=== PATIENT | male | born 1950 | race Caucasian/White ===

== ENCOUNTER 2021-06-12 11:55 | Inpatient (IN) | payer MEDICARE ==
[~2021-06-12] VITALS: Ht 170.2 cm; Wt 100.0 kg
[2021-06-12 12:35] LABS: HEMATOCRIT 39.6 % (42.0-52.0); MEAN CELL VOLUME 87 fl (80.0-100.0); MEAN CORPUSCULAR HEMOGLOBIN 29 pg (27-31); MEAN CORPUSCULAR HGB CONC 33 g/dl (33.0-37.0); PLATELET COUNT 247 K/mm3 (130-400); RED BLOOD COUNT 4.53 M/mm3 (4.20-5.60); REDCELL DISTRIBUTION WIDTH-CV 15.1 % (11.5-14.5)
[2021-06-12 12:45] LABS: ALBUMIN 3.1 gm/dL (3.4-4.8); BILIRUBIN,TOTAL 1.2 mg/dL (0.2-1.2); CALCIUM 9.7 mg/dL (8.4-10.2); CREATININE, serum 3.15 mg/dL (0.72-1.25); POTASSIUM 4.2 mmol/L (3.5-4.5); TOTAL PROTEIN 6.8 gm/dL (6.2-8.1)
[2021-06-12 12:52] LABS: TROPONIN-I 0.097 ng/mL (0.00-0.033)
[2021-06-12 13:04] LABS: BAND 18 % (0-10); LYMPHOCYTE 4 % (20.0-51.0); NEUTROPHILS 74 % (42.0-75.2); PLATELET ESTIMATE NORMAL (NORMAL)
[2021-06-12 13:05] LABS: OVALOCYTES 1+
[2021-06-12 13:54] LABS: INR 1.5 (0.8-3.0); PROTHROMBIN TIME 17.1 SECONDS (9.7-12.8)
[2021-06-12 13:56] LABS: PARTIAL THROMBOPLASTIN TIME 25.8 SECONDS (26.0-37.0)
[2021-06-12] MEDS ORDERED: ARTHROTEC 550 MG/TAB PO (15:09)
[2021-06-12] MEDS ORDERED: REQUIP4 MG PO (15:10)
[2021-06-12] MEDS ORDERED: METANX 2.8 MG-21 TA1 PO (15:11)
[2021-06-12] MEDS ORDERED: THERA-D 20002000 IU PO (15:11)
[2021-06-12] MEDS ORDERED: NEURONTIN600 MG/TAB PO (15:12)
[2021-06-12] MEDS ORDERED: GLUCOPHAGE500 MG/TAB PO (15:13)
[2021-06-12] MEDS ORDERED: LOPRESSOR 225 MG/TAB PO (15:13)
[2021-06-12] MEDS ORDERED: FLOMAX 0.40.4 MG/CAP PO (15:14)
[2021-06-12] MEDS ORDERED: PEPCID 20MG TAB20 MG PO (15:14)
[2021-06-12] MEDS ORDERED: ASPIRIN 81M81 MG/TA2 PO (15:15)
[2021-06-12] MEDS ORDERED: PRECOSE 25MG25 MG PO (15:15)
[2021-06-12] MEDS ORDERED: LIPITOR 40MG TA40 MG PO (15:16)
[2021-06-12] MEDS ORDERED: COZAAR100 MG PO (15:16)
[2021-06-12] MEDS ORDERED: JANUVIA50 MG PO (15:18)
[2021-06-12] MEDS ORDERED: LOTREL 2.5 MG-11 CAP PO (15:18)
[2021-06-12 16:10] VITALS: BP 94/63; PULSE 85; TEMP 99.7
[2021-06-12 17:14] LABS: COLLECTION METHOD CLEAN CATCH
[2021-06-12 17:26] LABS: MUCOUS Present (NOT PRESENT); PH 5 (5-8); SQUAMOUS EPITHELIAL 0-2 /hpf (0-10); URINE APPEARANCE Cloudy (CLEAR/HAZY); URINE BACTERIA Rare /hpf (NONE SEEN); URINE BILIRUBIN Negative (NEGATIVE); URINE BLOOD Negative (NEGATIVE); URINE COLOR Amber (YELLOW); URINE GLUCOSE Negative (NEGATIVE); URINE KETONE Negative (NEGATIVE); URINE LEUKOCYTE ESTERASE Negative (NEGATIVE); URINE NITRATE Negative (NEGATIVE); URINE PROTEIN(semi-quant) 2+ (NEGATIVE); URINE UROBILINOGEN >=4.0 (NEGATIVE)
--- NOTE | 2021-06-12 17:39 | NUR ---
PT UP TO SURGICAL FLOOR AND IN ROOM 346 AT ABOUT 1610, PT ABLE TO AMBULATE TO BED; PT REQUIRES SBA, PT DYSPNEIC AND REPORTS SHORTNESS OF AIR, VSS, 02 ROOM AIR WITH SAURATIONS ABOVE 92 PERCENT. AT BEDSIDE. ASSESMENT COMPLETE. PT HAS BILAT KNEE BRACES ON. HAS LIDOCAINE PATCH ON LOWER BACK. BLE +2 PITTING EDEMA, CAPILLARY REFILL WNL. MED REC COMPLETE. HEP GTT INFUSING AT 18CC/HR TO LAC NEXT HEPXA AT 1944 THIS DAY. N/S FREE INFSUING TO LFA IV. LUNGS AUSCULATED ;ALL LOBES DIMINISHED. PT AND ORIENTED TO FLOOR AND HOSPITAL POLICY. BOTH VERBALIZE UNDERSTANDING. ALL NEEDS MET THUS FAR. CALL LIGHT WITHIN REACH.
[2021-06-12 17:55] VITALS: TEMP 101
--- NOTE | 2021-06-12 18:15 | NUR ---
THIS NURSE CONTACTED BY MERA IN RADIOLOGY TO CONIFRM IF PT REQUIRES STAT VQ SCAN, THIS NURSE CONTACTED HOSPITLIST WHO INFORMED THIS NURSE MIGHT WELL GET VQ SCAN DONE ANOTHER PT ON ANOTHER FLOOR HAS AN EMERGENT ONE, THIS NURSE RELAYED TO MERA. MERA CONFIRMS AND STATES SHE WILL COME TOMORROW MORNING TO COMPLETE.
--- NOTE | 2021-06-12 18:35 | NUR ---
PT TEMPERATURE ELEVATED, TYLENOL ADMINSITERED ORDERED. TEMP WAS 101.7 UPON RECHECK 98.7.
--- NOTE | 2021-06-12 20:00 | NUR ---
HEP XA=0.46, HEPARIN GTT AT 18CC/HR TO LEFT AC INFUSING WITHOUT PROBLEM. HAS INT TO LEFT AC, FLUSHED AT THIS TIME. PT SITTING BY WINDOW. REPORTS LEFT CHEST DISCOMFORT AND COUGH R/T PNEUMONIA. PT IS ALERT AND ORIENTED X4. DENIES NEED FOR PAIN MEDS AT THIS TIME.
[2021-06-12 20:50] VITALS: BP 109/64; PULSE 83; TEMP 99.3
[2021-06-12 23:41] VITALS: BP 95/57; PULSE 75; TEMP 98.7
--- NOTE | 2021-06-13 02:00 | NUR ---
HEP XA=0.32, INCREASED RATE TO 19CC/HR. PT IN BED, NO COMPLAINTS VOICED.
[2021-06-13 03:24] VITALS: BP 96/48; PULSE 80; TEMP 98.6
--- NOTE | 2021-06-13 04:00 | NUR ---
STANDBY ASSIST TO RECLINER, IV HEPARIN CONTINUES TO LEFT AC.
[2021-06-13 06:27] LABS: MEAN CELL VOLUME 87 fl (80.0-100.0); MEAN CORPUSCULAR HEMOGLOBIN 28 pg (27-31); MEAN CORPUSCULAR HGB CONC 33 g/dl (33.0-37.0); MEAN PLATELET VOLUME 11.1 fl (7.4-10.4); PLATELET COUNT 235 K/mm3 (130-400); RED BLOOD COUNT 4.22 M/mm3 (4.20-5.60); REDCELL DISTRIBUTION WIDTH-CV 15.2 % (11.5-14.5)
[2021-06-13 06:39] LABS: HEMATOCRIT 36.6 % (42.0-52.0)
[2021-06-13 06:44] LABS: ALBUMIN 2.7 gm/dL (3.4-4.8); CALCIUM 9.8 mg/dL (8.4-10.2); CREATININE, serum 2.87 mg/dL (0.72-1.25); MAGNESIUM 1.8 mg/dL (1.6-2.6); PHOSPHOROUS 3.9 mg/dL (2.3-4.7)
[2021-06-13 08:00] VITALS: BP 117/58; PULSE 89; TEMP 97.8
[2021-06-13 08:21] LABS: BAND 15 % (0-10); EOSINOPHIL 1 % (0-4); LYMPHOCYTE 5 % (20.0-51.0); NEUTROPHILS 74 % (42.0-75.2); PLATELET ESTIMATE NORMAL (NORMAL)
--- NOTE | 2021-06-13 11:37 | NUR ---
mobile home lot utility worker met with patient and his spose Cheryl ([phone]) at bedside with patient consent. Patient informs he is traveling from [place], to visit his daughter and three young grandchildren. His spouse has additional family members nearby in [place], and there is a family home in [place], [place], that they may stay at as needed, post-hospitalization, for recovery before traveling home to [place]. Patient and his spouse live in a farm home in [place]. Patient utilizes a cane for ambulation and has no other medical equipment needs; he has no oxygen needs. His primary care physician is Dr. Jailene Manning in [place], [place]. He utilizes [facility] in [place], [place], but do have access to local pharmacies, including [facility] should he need medications at discharge. Patient has a living will and DPOA paperwork at home, but no access to it at this time, patient would like to complete a DPOA-HC now, to get on file "just in case." This social insurance adviser facilitates patient completion of DPOA-HC paperwork, a copy is placed into pt chart for filing and patient is given the original and two copies. Patient is hopeful he will not have to remain in [place] at discharge, but there is family nearby they can stay with for any additional recovery/services or supports as needed; he identifies no anticipated discharge needs at this time. Social work will continue to follow for discharge needs. *Discharge plan: D/c to family home with spouse, pending further discharge needs*
--- NOTE | 2021-06-13 11:38 | NUR ---
PT TO VQ SCAN SEE REPORT FOR RESULTS, PT THEN AMBULATING IN [facility] WITH THERAPY. ADJUSTED HEPARIN RATE PER ORDERS AND VERIFIED WITH REAL MEREDITH RN. NOTIFIED DR. PARK OF LAB RESULTS. CONSULTED FOR PULMONOLOGY. PT RESTING IN BED AND AT BEDSIDE.
[2021-06-13 11:45] VITALS: BP 133/64; PULSE 90; TEMP 98.8
--- NOTE | 2021-06-13 14:58 | NUR ---
UPDDATED DR. PARK ON LAB VALUES.
[2021-06-13 16:00] VITALS: BP 135/69; PULSE 91; TEMP 99
--- NOTE | 2021-06-13 20:18 | NUR ---
Pt stated that txs "dry him out". Tx given via mouthpiece and tolerated well this time. Pt encouraged to take a normal breath during tx if deep breaths make it more difficult.
[2021-06-13 20:42] VITALS: BP 143/71; PULSE 101; TEMP 99.3
--- NOTE | 2021-06-13 23:37 | NUR ---
PT HAS A COUGH. OFFERED ROBITUSSIN. DECLINED. HIS DOCTOR TOLD HIM NO TO TAKE BACUASE OF HIS PROSTATE. GOT NEW ORDER FOR TRICIA BARTON. SEE MAR.
--- NOTE | 2021-06-14 00:14 | NUR ---
SEE MAR FOR TEASSALON PEARLES GIVEN.
[2021-06-14 00:19] VITALS: BP 123/65; PULSE 86; TEMP 99.3
--- NOTE | 2021-06-14 03:29 | NUR ---
PT HAD A BLOODY NOSE TONIGHT. SMALL AMT OF BLOOD NOTED.
[2021-06-14 03:35] VITALS: BP 135/77; PULSE 87; TEMP 98.4
--- NOTE | 2021-06-14 04:45 | NUR ---
PT COUGHING WITH WHEEZE AND HANVING ARTHRITIS PAIN. SEE MAR FOR TESSALON PEARLES AND TYLENOL. CALLED RT FOR [place].
--- NOTE | 2021-06-14 05:09 | NUR ---
PRN tx requested by Pt. Tx given via mouthpiece, tolerated well.
[2021-06-14 05:24] LABS: BASO # 0.1 K/mm3 (0.0-0.2); BASO % 0.5 % (0.0-2.0); EOS # 0.4 K/mm3 (0.0-0.7); EOS % 3.9 % (0.0-4.0); HEMOGLOBIN 12.1 g/dl (13.5-18.0); LYMPH # 0.8 K/mm3 (1.2-3.4); LYMPH % 6.9 % (20.0-51.0); MEAN CELL VOLUME 86 fl (80.0-100.0); MEAN CORPUSCULAR HEMOGLOBIN 28 pg (27-31); MEAN CORPUSCULAR HGB CONC 33 g/dl (33.0-37.0); MEAN PLATELET VOLUME 10.5 fl (7.4-10.4); MONO # 0.8 K/mm3 (0.1-0.6); MONO % 7.2 % (1.7-9.3); PLATELET COUNT 285 K/mm3 (130-400); RED BLOOD COUNT 4.33 M/mm3 (4.20-5.60); REDCELL DISTRIBUTION WIDTH-CV 15.1 % (11.5-14.5)
[2021-06-14 05:39] LABS: ALBUMIN 2.8 gm/dL (3.4-4.8); CALCIUM 10.5 mg/dL (8.4-10.2); CREATININE, serum 2.16 mg/dL (0.72-1.25); MAGNESIUM 1.9 mg/dL (1.6-2.6); PHOSPHOROUS 3.9 mg/dL (2.3-4.7)
[2021-06-14 07:26] VITALS: BP 131/85; PULSE 81; TEMP 98.8
--- NOTE | 2021-06-14 10:47 | NUR ---
Assessment completed, alert/oriented, denies pain this, vital signs stable, reports a nagging cough overnight, on room air , lungs CTA/ diminished, IV abx for his PNA, creat improving and good urine output overnight/ nephrology following, had a VQ scan to r/o PE and continues on heparin gtt at this time, heart RRR/distal pulses are palpable, he is working with PT at this time, denies other needs, will cotninue to monitor, he is in contact/droplet p/c for + RVP
[2021-06-14 11:43] VITALS: BP 130/71; PULSE 79; TEMP 98.5
[2021-06-14 15:33] VITALS: BP 132/72; PULSE 81; TEMP 98.5
[2021-06-14 21:51] VITALS: BP 131/70; PULSE 74; TEMP 98.3
[2021-06-15] VITALS (24 sets, daily range): BP systolic 127–180; BP diastolic 76–98; PULSE 72–101; TEMP 97.3–99.5
--- NOTE | 2021-06-15 01:16 | NUR ---
Report received from CANDACE Hough. Full body assessment and vital signs are WNL. Patient is pleasant and A&Ox3. Patient has had an uneventful evening thus far, states that he cannot sleep well with his cough. Patient ambulates independently with a steady gate. Patient is NPO as of midnight for a stress test and expresses understanding. Patient denies any pain and has no other complaints at this time. Call light within reach.
--- NOTE | 2021-06-15 02:58 | NUR ---
Patient is having a difficult time sleeping/resting this evening due to his dry cough. Patient also states that he is also worrying about his stress test on 06/15/21. Lung sounds reassessed, left lower lobe continues to be diminished. Patient has no complaints of pain at this time. Call light within reach.
[2021-06-15 06:46] LABS: BASO # 0.1 K/mm3 (0.0-0.2); BASO % 0.9 % (0.0-2.0); EOS # 0.5 K/mm3 (0.0-0.7); EOS % 5.7 % (0.0-4.0); GRAN % 75.9 % (42.2-75.2); HEMATOCRIT 40.1 % (42.0-52.0); HEMOGLOBIN 13.2 g/dl (13.5-18.0); LYMPH # 0.6 K/mm3 (1.2-3.4); LYMPH % 6.7 % (20.0-51.0); MEAN CELL VOLUME 86 fl (80.0-100.0); MEAN CORPUSCULAR HEMOGLOBIN 28 pg (27-31); MEAN CORPUSCULAR HGB CONC 33 g/dl (33.0-37.0); MEAN PLATELET VOLUME 11.2 fl (7.4-10.4); MONO # 0.9 K/mm3 (0.1-0.6); MONO % 9.9 % (1.7-9.3); PLATELET COUNT 303 K/mm3 (130-400); RED BLOOD COUNT 4.65 M/mm3 (4.20-5.60); REDCELL DISTRIBUTION WIDTH-CV 15.2 % (11.5-14.5)
[2021-06-15 06:59] LABS: CREATININE, serum 1.79 mg/dL (0.72-1.25); MAGNESIUM 1.6 mg/dL (1.6-2.6); PHOSPHOROUS 3.2 mg/dL (2.3-4.7); POTASSIUM 4.2 mmol/L (3.5-4.5)
--- NOTE | 2021-06-15 14:50 | NUR ---
CONTACTED PREPARER SAMPLES AND REPAIRS. ESTIMATED TIME OF PROCEDURE 4PM
--- NOTE | 2021-06-15 15:59 | NUR ---
SEE MERGE FOR ALL MEDICATION ADMINISTRATION TIMES/DOSAGES AND INTRA/POST PROCEDURE SEDATION ASSESSMENT.
--- NOTE | 2021-06-15 17:34 | NUR ---
REPORT RECEIVED FROM NAIL WELTER FOR PATIENT RETURN TO UNIT. STABLE AT THIS TIME. RIGHT RADIAL ENTRY FOR HEART CATH, NO BLOCKAGES IDENTIFIED. RADIAL BAND AT 12ML, WILL CONT TO MONITOR SITE.
[2021-06-16 00:37] VITALS: BP 161/78; PULSE 35; TEMP 99
--- NOTE | 2021-06-16 01:51 | NUR ---
Report received from daysorft nurse. Patient resting quietly in bed, at the bedside. Full body assessment completed and vital signs are WNL. Patient is here due to PNA and elevated troponin levels. Patient no longer on a heparin drip. Cardiac cath was performed 06/15/21, there have been no difficulties with his right radial site. Patient is still having issues with persistent coughing, tessalon pearls were adminstered and patient stated that this helped. Patient has no complaints at this time. Call light within reach.
--- NOTE | 2021-06-16 02:43 | NUR ---
Call received from tele that patients leads were off. This nurse entered the patients room and found the patient with his gown off and getting dressed in his civilian clothes. I inquired as to why he was getting dressed at 0230 and he responded "well the doctors will be coming soon so I can go home." I informed the patient that doctors do not round until later in the morning and that he still needs to wear his tele. Patient expressed understanding. Tele was reapplied to the patient.
[2021-06-16 05:43] LABS: HEMATOCRIT 41.4 % (42.0-52.0); HEMOGLOBIN 13.5 g/dl (13.5-18.0); MEAN CELL VOLUME 86 fl (80.0-100.0); MEAN CORPUSCULAR HEMOGLOBIN 28 pg (27-31); MEAN CORPUSCULAR HGB CONC 33 g/dl (33.0-37.0); MEAN PLATELET VOLUME 10.4 fl (7.4-10.4); PLATELET COUNT 321 K/mm3 (130-400); RED BLOOD COUNT 4.81 M/mm3 (4.20-5.60); REDCELL DISTRIBUTION WIDTH-CV 15.2 % (11.5-14.5)
[2021-06-16 05:51] VITALS: BP 158/77; PULSE 107; TEMP 99
[2021-06-16 05:59] LABS: CALCIUM 10.6 mg/dL (8.4-10.2); CREATININE, serum 1.73 mg/dL (0.72-1.25); MAGNESIUM 1.5 mg/dL (1.6-2.6); PHOSPHOROUS 3.9 mg/dL (2.3-4.7); POTASSIUM 3.9 mmol/L (3.5-4.5)
[2021-06-16 07:15] LABS: BAND 3 % (0-10); EOSINOPHIL 7 % (0-4); LYMPHOCYTE 12 % (20.0-51.0); NEUTROPHILS 67 % (42.0-75.2)
[2021-06-16 07:16] LABS: PLATELET ESTIMATE NORMAL (NORMAL)
--- NOTE | 2021-06-16 07:25 | NUR ---
Shift report received from shiftman RN. Pt. resting in bed. Call light is within his reach
[2021-06-16 07:47] VITALS: BP 171/87; PULSE 75; TEMP 98.4
--- NOTE | 2021-06-16 09:15 | NUR ---
Pt. resting in recliner at bedside. Awake/alert and watching television. He is anticipating possible d/c to home today. He denies any pain or discomfort. He denies nausea. Call light is within his reach. He denies further needs at this time
[2021-06-16 11:16] VITALS: BP 152/62; PULSE 81; TEMP 98.6
--- NOTE | 2021-06-16 11:43 | NUR ---
The patient tested positive for the coronavirus. SW contacted the patient to follow up and review discharge plan. The patient is doing well and is hopeful to go home soon. He confirms that him and his plan on going to their house in [place] upon discharge. They plan on staying there for a bit to get rested up, before going back to [place]. SW to continue to monitor.
--- NOTE | 2021-06-16 14:26 | NUR ---
The patient is to discharge back to his family home today, 06/16. SW contacted the patient and read the IM form outloud to him over the phone. The patient verbalized understanding and in agreement to discharge today. He gave SW approval to sign the form on his behalf. No additional needs at this time.
[2021-06-16] MEDS ORDERED: NORVASC 5MG5 MG/TAB PO (15:28)
[2021-06-16] MEDS ORDERED: MUCUS RELIEF200 MG PO (15:28)
[2021-06-16] MEDS ORDERED: LEVAQUIN 750MG750 M1 PO (15:29)
[2021-06-16 15:52] VITALS: BP 137/83; PULSE 61; TEMP 98.3
--- NOTE | 2021-06-16 16:26 | NUR ---
Discharge Summary, Home Medications, reviewed with patient and his spouse. Belonging were gathered by the pt. and his . Reviewed upcoming appointments. Patient escorted via WC to car and seatbelted for ride home. Pt. and had no further questions
== END 2021-06-16 16:20 | disposition home or self-care (01) | DRG 871 ==
LOC: COL.ER 11:55 → SURG 14:24
PROVIDERS: Nurse Practitioner Primary Care; Student in an Organized Health Care Education/Training Program; ADMIT Internal Medicine
PROC: 4A023N7 Measurement of Cardiac Sampling and Pressure, Left Heart, Percutaneous Approach (ICD-10-PCS; principal; 2021-06-12)
PROC: B2111ZZ Fluoroscopy of Multiple Coronary Arteries using Low Osmolar Contrast (ICD-10-PCS; 2021-06-12)
DX: A41.9 Sepsis, unspecified organism (principal); R65.21 Severe sepsis with septic shock; J18.9 Pneumonia, unspecified organism; J96.01 Acute respiratory failure with hypoxia; I21.A1 Myocardial infarction type 2; N17.9 Acute kidney failure, unspecified; I25.10 Atherosclerotic heart disease of native coronary artery without angina pectoris; E78.5 Hyperlipidemia, unspecified; N18.9 Chronic kidney disease, unspecified; E11.22 Type 2 diabetes mellitus with diabetic chronic kidney disease; I12.9 Hypertensive chronic kidney disease with stage 1 through stage 4 chronic kidney disease, or unspecified chronic kidney disease; I34.0 Nonrheumatic mitral (valve) insufficiency; B97.29 Other coronavirus as the cause of diseases classified elsewhere; E11.40 Type 2 diabetes mellitus with diabetic neuropathy, unspecified; E83.42 Hypomagnesemia; Z20.822 Contact with and (suspected) exposure to COVID-19; Z79.82 Long term (current) use of aspirin; I25.2 Old myocardial infarction; Z86.711 Personal history of pulmonary embolism; Z79.84 Long term (current) use of oral hypoglycemic drugs
CPT/HCPCS: 99223-AI; 99232-AI; 99233-AI; 99239; A9284; A9500; A9540; A9567; C1769; J0456; J1644; J1815; J1956; J2250; J2785; J3010; J3475; J7030; J7050; Q9967